=== PATIENT | female | born 1955 | race Caucasian/White ===

== ENCOUNTER → 2020-12-09 15:04 | Outpatient (CLI) | payer BC, SELFPAY ==
--- NOTE | ~2020-12-09 | XR_ITS ---
XR abdomen/kub 1V 12/09/2020 15:22 Indication: History of kidney stones, nausea and vomiting Procedure: KUB Comparison: 05/01/2009 Findings: There is scoliosis. There is a Wiseman benjamin overlying the lower thoracic and lumbar spine moderate colonic fecal loading. Bowel content limits evaluation for renal stones. Lung bases unremar kable. No acute osseous abnormality. No definite renal stones identified. Or Impression: 1: No acute abdominal abnormality. Reviewed, dictated and finalized at location A. L COAT SPRAYER Impression: 1: No acute abdominal abnormality.
== END ==
PROVIDERS: Visit Provider Urology
DX: Z87.442 Personal history of urinary calculi (principal)
CPT/HCPCS: 74018

== ENCOUNTER 2021-01-12 14:12 | Outpatient (CLI) | payer BC, SELFPAY ==
--- NOTE | ~2021-01-12 | CT_ITS ---
EXAMINATION: CT diagnostic chest wo con DATE: 01/12/2021 14:33 INDICATION: Pulmonary nodules. TECHNIQUE: Computed tomography (CT) of the chest was performed without intravenous contrast. The dose -length product was 98.17 mGy-cm. Automated exposure control and iterative reconstruction technique w ere employed. COMPARISON: KUB dated 12/09/2020 FINDINGS: No thoracic lymphadenopathy. There is atherosclerosis of the aorta and coronary arteries. S tatus post median sternotomy for CABG. No significant pleural or pericardial effusion. There are smal l 2-3 mm nodules in the upper lobes. There is a left upper lobe nodule measuring up to 7 mm. There is a partially visualized right renal mass, compatible with renal cell carcinoma until proven otherwise . Recommend follow-up consultation or contrast-enhanced CT. There are calcifications of the pancre as suggesting chronic pancreatitis. 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 There is scoliosis with a left unilateral Wiseman benjamin. There is a left shoulder arthroplasty. IMPRESSION: 1. Partially visualized right renal mass, concerning for renal cell carcinoma. Follow-up consultat ion and/or contrast-enhanced CT examination recommended. 2: Small bilateral pulmonary nodules, largest at the left apex measuring up to 7 mm. Follow-up low do se CT chest in 6 months recommended to assess stability. Dr. Lopez discussed with Dr. Thierry Corbin DO at 01/12/2021 15:33 STEM PROCESSING MACHINE OPERATOR. Reviewed, dictated and finalized at location A. PROCESSING MACHINE OPERATOR IMPRESSION: 1. Partially visualized right renal mass, concerning for renal cell carcinoma. Follow-up consultation and/or contrast-enhanced CT examination recommended. 2: Small bilateral pulmonary nodules, largest at the left apex measuring up to 7 mm. Follow-up low dose CT chest in 6 months recommended to assess stability. Dr. Lopez discussed with Dr. Thierry Corbin DO at 01/12/2021 15:33 STEM PROCESSING MACHINE OPERATOR.
== END 2021-01-12 14:13 | disposition home or self-care (01) ==
PROVIDERS: PCP Internal Medicine; Visit Provider Internal Medicine
DX: N28.89 Other specified disorders of kidney and ureter (principal); R91.8 Other nonspecific abnormal finding of lung field
CPT/HCPCS: 71250

== ENCOUNTER 2021-01-21 14:00 | Outpatient (CLI) | payer BC, SELFPAY ==
--- NOTE | ~2021-01-21 | CT_ITS ---
EXAMINATION: CT abdomen wo/w con DATE: 01/21/2021 14:37 INDICATION: Right kidney mass TECHNIQUE: Computed tomography (CT) of the abdomen was performed without and subsequently with 100 cc Omnipaque 350 intravenous contrast. Automated exposure control and iterative reconstruction techniqu e were employed. Exam dose: 782.89 mGy-cm total exam DLP. COMPARISON: None. FINDINGS: The lung bases are clear. Heart size is within normal range. No pericardial or pleural effu casandra. Status post sternotomy. There is an indeterminate 1 cm hypoenhancing lesion of the upper pole the right kidney with attenuati on of 30 Hounsfield units. There is a huge heterogeneous soft tissue mass of the mid and lower right kidney measuring 12.5 cm or greater height, 10 cm transverse and 10.4 cm anteroposterior dimension. This is almost certainly a l arge hypernephroma. There is an indeterminate approximately 1.8 x 2.3 cm mass along the posterolateral aspect of the lowe r pole of the left kidney. Left hypernephroma is not excluded. MR examination is suggested for furthe r evaluation. The liver, gallbladder, bile ducts, spleen, pancreas and pancreatic duct are unremarkable. Normal morphology of the adrenal glands. No urinary tract calculus or hydroureteronephrosis. There is extensive atherosclerotic calcification of the abdominal aorta and iliac arteries, but no an eurysm. Up to 7 x 10.7 mm aorta caval lymph nodes, possibly metastatic. No bowel obstruction or intraperitoneal free air. Left thoracolumbar spinal rods. Scoliosis and degenerative changes of the lumbar spine, including sev ere degenerative disc disease and minimal retrolisthesis at L4-5, severe degenerative change at the a pophyseal joints in the lumbosacral area.. IMPRESSION: Huge right renal mass consistent with hypernephroma. Likely metastatic aortocaval lympha denopathy. Indeterminate 1 cm upper pole right renal mass Indeterminate up to 2.3 cm lower pole left renal mass; consider MRI of the kidneys for further evalua tion. Reviewed, dictated and finalized at [facility]. Reviewed, dictated and finalized at location A. IMPRESSION: Huge right renal mass consistent with hypernephroma. Likely metast atic aortocaval lymphadenopathy. Indeterminate 1 cm upper pole right renal mass Indeterminate up to 2.3 cm lower pole left renal mass; consider MRI of the kidn eys for further evaluation.
[2021-01-21 14:28] LABS: Estimated Glomerular Filt Rate > 60
== END 2021-01-21 14:01 | disposition home or self-care (01) ==
PROVIDERS: PCP Internal Medicine; Visit Provider Internal Medicine
DX: N28.89 Other specified disorders of kidney and ureter (principal)
CPT/HCPCS: 74170; Q9967

== ENCOUNTER → 2021-01-30 00:19 | Outpatient (CLI) | payer BC, SELFPAY ==
[2021-01-30 17:44] LABS: SARS-CoV-2 RNA PCR Negative
== END ==
PROVIDERS: PCP Internal Medicine; Visit Provider Internal Medicine Gastroenterology
DX: Z01.812 Encounter for preprocedural laboratory examination (principal); Z20.822 Contact with and (suspected) exposure to COVID-19
CPT/HCPCS: C9803; U0003; U0005

== ENCOUNTER 2021-02-02 13:03 | Emergency (ER) | payer BC, SELFPAY ==
[2021-02-02 13:43] VITALS: BP 128/79; PULSE 58; RESP 16; TEMP 36.2; O2SAT 99
[2021-02-02 14:15] LABS: Basophils Percent Auto 0.2 % (0.2-1.2); Eosinophils Absolute Auto 0.1 K/mm3 (0-0.3); Eosinophils Percent Auto 0.5 % (0-4.4); Hematocrit 32.1 % (37.0-47.0); Hemoglobin 9.7 g/dL (12.0-15.0); Immature Granulocyte Absolute 0.05 K/mm3 (0.00-0.031); Immature Granulocyte Percent A 0.5 % (0-0.5); Lymphocytes Percent Auto 20.7 % (18.3-44.2); Mean Corpuscular HGB Conc 30.2 g/dl (32-36); Mean Corpuscular Hemoglobin 24.1 pg (26-34); Mean Corpuscular Volume 79.9 fl (80-100); Mean Platelet Volume 9.4 fl (7.4-10.4); Monocytes Absolute Auto 0.8 K/mm3 (0.1-0.6); Monocytes Percent Auto 8.4 % (2.6-8.5); Neutrophils Absolute Auto 6.4 K/mm3 (1.3-6.7); Neutrophils Percent Auto 69.7 % (45.5-73.1); Platelet Count Result 684 k/mm3 (150-375); Red Blood Count 4.02 M/mm3 (4.2-5.4); Red Cell Distribution Width 18.3 % (11.5-14.5); White Blood Count 9.2 K/mm3 (4.5-10.0)
[2021-02-02 15:26] VITALS: BP 141/82; PULSE 110; RESP 18; O2SAT 97
--- NOTE | 2021-02-02 16:03 | ECG_ITS ---
Measurements Intervals [place] Rate: 102 P: 19 NV: 130 QRS: 19 QRSD: 110 T: -11 QT: 361 QTc: 472 Interpretive Statements SINUS TACHYCARDIA FREQUENT VENTRICULAR PREMATURE COMPLEXES INTRAVENTRICULAR CONDUCTION DELAY BORDERLINE ST-T WAVE ABNORMALITY- DIFFUSE LEADS BASELINE ARTIFACT- I, III ABNORMAL ECG Electronically Signed On 02-03-2021 7:02:15 CDT by Lele Dougherty D.O.
[2021-02-02 16:09] LABS: Alanine Aminotransferase 35 U/L (4-35); Albumin Level 3.7 g/dL (3.5-5.1); Alkaline Phosphatase 405 U/L (38-126); Anion Gap 8 mmol/L (8-16); Aspartate Amino Transferase 25 U/L (14-36); Bilirubin,Total 0.4 mg/dL (0.2-1.3); Blood Urea Nitrogen 10 mg/dL (7-17); Calcium 9.7 mg/dL (8.4-10.2); Carbon Dioxide 28 mmol/L (22-30); Chloride 102 mmol/L (98-107); Estimated CRCL calculation 65 ml/min; Estimated Glomerular Filt Rate > 60; Glucose 115 mg/dL (65-105); Lipase 30 U/L (23-300); Potassium 3.6 mmol/L (3.4-5.0); Sodium 138 mmol/L (137-145)
[2021-02-02] MEDS: LACTATED RINGERS 1,000 ML 999 ML IV CONT (16:20)
[2021-02-02] MEDS: PROCHLORPERAZINE EDISYLATE 10 MG/2 ML VIAL IV PUSH (16:20)
--- NOTE | 2021-02-02 17:02 | ED.NAVMDI ---
HPI - Nausea/Vomiting/Diarrhea General Chief complaint: Nausea/Vomiting/Diarrhea Stated complaint: N/V/D WITH COLONSCOPY PREP Time Seen by Provider: 02/02/21 15:31 Source: patient Mode of arrival: ambulatory Limitations: no limitations History of Present Illness HPI Narrative: 65-year-old female Patient was doing a colon prep for a scheduled endoscopy today and basically felt like it was making her too weak and nauseated to be able to tolerate the last couple hours before her procedure was scheduled and presented to the ED Endoscopies were planned to evaluate nausea vomiting and weight loss which had been present for some time It looks like she might have been referred to GI and had an outpatient CT scan ordered at roughly the same time and the CT scan which was done about 2 weeks ago showed a very large renal mass that likely represents a carcinoma She does have a appointment to see a urologist in [place] on February 17 about that Related Data Home Medications Medication Instructions Recorded Confirmed amlodipine 2.5 mg tablet 2.5 mg PO DAILY 11/25/20 01/29/21 aripiprazole 2 mg tablet 3 mg PO DAILY tablet 11/25/20 01/29/21 aspirin 81 mg tablet,delayed 81 mg PO DAILY 11/25/20 01/29/21 release bupropion HCl 200 mg tablet,12 hr 150 mg PO BID 11/25/20 01/29/21 sustained-release levomilnacipran 80 mg capsule,24 80 mg PO DAILY 11/25/20 01/29/21 hr,extended release lisinopril 20 mg tablet 10 mg PO DAILY tablet 11/25/20 01/29/21 metoprolol tartrate 50 mg tablet 50 mg PO Q12H 11/25/20 01/29/21 omega-3s 350 [id number] 1 cap PO DAILY cap 11/25/20 01/29/21 [id number] oil 600 mg capsule simvastatin 40 mg tablet 40 mg PO DAILY 11/25/20 01/29/21 Allergies Allergy/AdvReac Type Severity Reaction Status Date / Time Sulfa (Sulfonamide Allergy Intermediate NAUSEA/VOMI Verified 01/29/21 11:34 Antibiotics) TING Review of Systems Review of Systems: All systems reviewed & are unremarkable except as noted in HPI and below Constitutional: Constitutional: Denies chills, Reports fatigue, Denies fever(s), Denies headache(s) and Reports weakness Comments: Positive weight loss Eyes: Eyes: Reports no additional eye complaints and Denies change in vision ENT: Denies headache(s), Denies epistaxis, Denies nasal congestion and Denies sore throat Cardiovascular: Cardiovascular: Denies chest pain, Denies leg edema, Denies palpitations and Denies dyspnea Respiratory: Respiratory: Denies cough, Denies dyspnea and Denies wheezing Gastrointestinal: Gastrointestinal: Reports abdominal pain, Reports constipation, Denies diarrhea, Reports nausea and Reports vomiting Genitourinary: Genitourinary: Denies hematuria, Denies urinary frequency, Denies dysuria and Reports flank pain Musculoskeletal: Musculoskeletal: Denies deformity, Denies arthralgias, Denies joint swelling, Denies muscle weakness and Denies numbness Integumentary/Breasts: Skin/Breast: Denies rash and Denies wounds Neurologic: Denies headache(s), Denies focal weakness, Denies numbness and Denies weakness Psychiatric: Psychiatric: Reports no additional psychiatric complaints Endocrine: Endocrine: Denies fatigue and Denies palpitations Hematologic/Lymphatic: Hematologic/Lymphatic: Denies easy bleeding and Denies easy bruising Allergic/Immunologic: Allergic/Immunologic: Denies wheezing PMFSH Past Medical History Medical History (Updated 02/02/21 @ 17:16 by Nash Camarillo MD) Abnormal weight loss Depression History of chronic urinary tract infection Hyperlipidemia Hypertension Postmenopausal Screening for breast cancer Surgical History Surgical History Hx of rotator cuff surgery 2019 Family History Family History Grandparent Family history of malignant neoplasm of breast Social History Social History (Reviewed 01/23/21 @ 14:06 by
[2021-02-02 17:05] LABS: Magnesium 2.3 mg/dL (1.6-2.3)
[2021-02-02] MEDS: HYOSCYAMINE SULFATE 0.125 MG TABLET PO (17:41)
[2021-02-02 18:19] VITALS: BP 155/87; PULSE 102; RESP 16; TEMP 36.8; O2SAT 100
== END 2021-02-02 18:30 | disposition home or self-care (01) ==
PROVIDERS: Emergency Medicine; Emergency Provider Emergency Medicine; PCP Internal Medicine
DX: N28.89 Other specified disorders of kidney and ureter (principal); R11.2 Nausea with vomiting, unspecified; E78.5 Hyperlipidemia, unspecified; I10 Essential (primary) hypertension; Z87.440 Personal history of urinary (tract) infections; Z87.891 Personal history of nicotine dependence; Z79.82 Long term (current) use of aspirin; R00.0 Tachycardia, unspecified; I45.9 Conduction disorder, unspecified; I49.3 Ventricular premature depolarization
CPT/HCPCS: 36415; 80053; 83690; 83735; 85025; 93005; 96361; 96374; 99284; A9270; J0780; J7120

== ENCOUNTER → 2021-07-10 11:26 | Outpatient (CLI) | payer BC, SELFPAY ==
--- NOTE | ~2021-07-10 | XR_ITS ---
EXAMINATION: XR lumbar spine 2-3V DATE: 07/10/2021 12:25 INDICATION: Low back pain TECHNIQUE: Anteroposterior and lateral views of the lumbar spine, and cone-down lateral view of the l umbosacral junction were obtained. COMPARISON: CT, 01/21/2021 FINDINGS: There is thoracolumbar dextroscoliosis and lumbar levoscoliosis with a left-sided spinal ro d. No fracture is identified. There is unchanged severe loss of intervertebral disc space height at L 4-5. Vertebral body alignment appears normal in the plane. Calcified atherosclerosis is noted. Surgic al clips in the right abdomen likely reflect interval right nephrectomy. There is moderate osteoarthr itis of the hips. IMPRESSION: 1. Severe spondylosis at L4-5 without acute osseous abnormality. Reviewed, dictated and finalized at location A.
== END ==
PROVIDERS: PCP Internal Medicine; Visit Provider Internal Medicine
DX: M47.816 Spondylosis without myelopathy or radiculopathy, lumbar region (principal)
CPT/HCPCS: 72100